=== PATIENT | female | born 1995 | race Caucasian/White ===

== ENCOUNTER → 2017-10-06 | Day surgery (SDC) | payer OTHER ==
[~2017-10-06] VITALS: Ht 157.5 cm; Wt 97.5 kg
[~2017-10-06] MED LIST: COLACE 100 MG100 MG; DERMOPLAST SPRA56 ML; IBUPROFEN 600600 M1; LANOLIN56 GM; NORCO 5-325 TA1 EACH PO; SENNA; TUCKS MEDICATE1 EAC1
--- NOTE | ~2017-10-06 | O ---
[facility] [place] [address] OPERATIVE REPORT Name: JOSH DELCID Room #: 150-11 [facility]#: [id number] Admission: 10/06/17 Attend Phys: Sebastián Pope MD Discharge: Date of : 89 Report #: [id number] THIS REPORT FOR: //name// CC: Sebastián Burk DATE OF SERVICE: 10/06/2017 PREOPERATIVE DIAGNOSES: Chronic tonsillitis with tonsil and adenoid hypertrophy. POSTOPERATIVE DIAGNOSES: Chronic tonsillitis with tonsil and adenoid hypertrophy. OPERATIVE PROCEDURE: Tonsillectomy and adenoidectomy. ANESTHESIA: General endotracheal. PROCEDURE: The patient was taken to the operating room and placed in supine position. General anesthesia was induced by endotracheal intubation. Once adequate general anesthesia was obtained, the patient was draped in a sterile manner. A Kory-Aj mouth gag was placed in the patient's mouth, and the tongue was deviated upward. A throat pack was placed. Red rubber catheters were placed through the nose, nasopharynx and oropharynx and oral cavity to elevate the soft palate, and the nasopharynx was visualized indirectly using a mirror. The adenoid was hypertrophied, and adenoidectomy was performed by placing the adenoid curette at the base of the bone downward. The adenoid was removed and sent to pathology. Nasopharyngeal packing was placed. The right tonsil was grasped and deviated towards midline, and the incision was placed in the anterior tonsillar pillar using the Bovie electrocautery and a plane between the tonsillar capsule and tonsillar fossa was established. Dissection was carried out in this plane using the Bovie. Hemostasis was achieved during the dissection. Dissection was carried out from superior to the inferior, the inferior pole was incised, the posterior tonsillar mucosa was incised. The tonsil was removed and sent to pathology. Left tonsil was removed in exactly the same manner. The area was then irrigated with normal saline. Hemostasis was verified in the tonsillar beds. The nasopharyngeal packing was removed. The nasopharynx irrigated, and there was adequate hemostasis in the nasopharynx as well. The throat pack, mouth gag and red rubber catheters were all removed. The patient tolerated procedure well. Blood loss approximately 10 mL. The patient was then awoken and taken to the recovery room in stable condition for postoperative monitoring. By: [id number] Sebastián Pope MD /nt
--- NOTE | ~2017-10-06 | S ---
[facility] [place] [address] SURGICAL PATH RPT PROCEDURE Name: SHAHRZAD CROWDER Room #: 150-11 [facility] [place]#: [id number] Admission: 10/06/17 Date of : 89 Discharge: Report #: [id number] Path Case #: [id number] PATHOLOGY REPORT COLLECTION DATE: 10/06/2017 RECEIVED DATE: 10/06/2017 SUBMITTING PHYS: Dr. Sebastián Pope OTHER PHYS: Dr. Eran Burk SPECIMEN(S) RECEIVED: A.Right tonsil and adenoid B.Left tonsil * * * * * * * * * * * * FINAL DIAGNOSIS: A. Right tonsil and adenoid: - Tonsillar and adenoid tissue with lymphoid hyperplasia. B. Left tonsil: - Tonsillar tissue with lymphoid hyperplasia. PATHOLOGIST: Sujit Romero M.D. REPORT ELECTRONICALLY SIGNED BY: Sujit Romero M.D. DATE/TIME: 10/07/2017 12:42 * * * * * * * * * * * * GROSS PATHOLOGY: A. Received in formalin labeled "Shahrzad Crowder, tonsil and adenoid," is a tonsil measuring 2.9 x 1.9 x 1.4 cm in maximum dimensions and multiple pieces of angel lobulated lymphoid appearing tissue consistent with adenoids measuring 3.2 x 1.3 x 1.0 cm in aggregate dimensions. The mucosal surface of the tonsil is angel with the typical crypts identified. Sectioning reveals lobulated, homogeneous light angel cut surfaces with no grossly identifiable lesions. Event [employer] tissue is submitted in cassette A1. B. Received in formalin, labeled "Shahrzad Crowder, left tonsil," is a tonsil measuring 3.4 x 1.9 x 1.8 cm in maximum dimensions. The mucosal surface is angel with the typical crypts identified. Sectioning reveals lobulated, homogeneous light angel cut surfaces with no grossly identifiable lesions. Event Sales Manager tissue is submitted in cassette B1. (TSD; 10/06/2017) CLINICAL HISTORY: Chronic tonsillitis, TA hypertrophic [place] [id number] SURGICAL PATH RPT PROCEDURE Name: SHAHRZAD CROWDER Room #: [address] [place] [address] M.Rosie#: [id number] Admission: 10/06/17 Date of : 89 Discharge: Report #: [id number] Path Case #: [id number] INITIAL CPT CODE(S): A; 90430 B; 44401 Professional services [address] [facility] [address], [place] [address] Technical services performed by [facility] at [address] [place] [address], [facility] [address] [address]. [facility] [address] [place] [address] PHONE: [phone] DIRECTOR: Skyler Sweeney M.D. * * * END OF REPORT * * *
--- NOTE | ~2017-10-06 | H ---
[facility] [place] [address] HISTORY AND PHYSICAL Name: JOSH DELCID Room #: 150-11 [facility]#: [id number] Admission: 10/06/17 Attend Phys: Sebastián Pope MD Discharge: Date of : 89 Report #: [id number] THIS REPORT FOR: //name// CC: Sebastián Burk DATE OF SERVICE: 10/06/2017 HISTORY OF PRESENT ILLNESS: The patient has chronic and acute pharyngitis and sinusitis. She is treated for ear infections 4-5 times a year. She has ear pain and drainage. She has occasional sore throats with the ear infections. She was found to have tonsil and adenoid hypertrophy and has been placed on antibiotics and nasal steroid sprays. She has had persistently enlarged tonsils. PAST MEDICAL HISTORY: Otherwise, not significant. MEDICATIONS: She is on no medication on a regular basis. ALLERGIES: She has no known drug allergies. PHYSICAL EXAMINATION: She had 3+ large tonsils with pustules and debris and redness in the posterior pharynx. She has an enlarged adenoid as seen on nasal endoscopy with purulence and blockage in the posterior nasal airway. She had tender upper cervical adenopathy. IMPRESSION: Chronic tonsillitis, chronic sinusitis with tonsil and adenoid hypertrophy. PLAN: Tonsillectomy and adenoidectomy. <ELECTRONICALLY SIGNED> By: Sebastián Pope MD 10/06/17 0811 [id number] Sebastián Pope MD /bernard
[2017-10-06 09:30] VITALS: BP 121/67
[2017-10-06 11:21] VITALS: BP 121/67
== END | disposition home or self-care (01) ==
LOC: TBA 05:32 → OR 05:32
DX: J35.03 Chronic tonsillitis and adenoiditis (principal); Z98.890 Other specified postprocedural states
CPT/HCPCS: 50010; 50101; 62110; 62900; 70005